=== PATIENT | male | born 1950 | race Caucasian/White ===

== ENCOUNTER 2021-11-21 13:30 | Inpatient (IN) | payer MEDICARE, OTHER, SELFPAY ==
[2021-11-21] VITALS (44 sets, daily range): BP systolic 106–150; BP diastolic 55–88; PULSE 77–105; RESP 10–31; TEMP 36.4–36.6; O2SAT 90–100; BMI 37.0
--- NOTE | ~2021-11-21 | XR_ITS ---
EXAMINATION: XR chest 2V EXAM DATE: 11/21/2021 13:51 INDICATION: Chest pain, cough and shortness of breath. TECHNIQUE: Frontal and lateral projections of the chest obtained and reviewed. There is no prior genna dy for comparison. FINDINGS: Right basilar calcified granuloma. The lungs are otherwise clear. The cardiomediastinal si lhouette is prominent but magnified on this AP technique. No pleural effusion.. There is no pneumoth orax suspected. There are mild bony degenerative changes. IMPRESSION: No acute cardiopulmonary findings. Reviewed, dictated and finalized at location A.
--- NOTE | ~2021-11-21 | CT_ITS ---
EXAMINATION: CTA chest PE protocol DATE: 11/21/2021 15:17 INDICATION: chest pain, post covid illness TECHNIQUE: Computed tomography angiography (CTA) of the chest was performed with 100 mL Omnipaque-350 intravenous contrast timed to evaluate the pulmonary arteries. Coronal maximum intensity projection 3D-reconstructions were created by the technologist. The dose-length product (DLP) was 935.67 mGy-cm. Automated exposure control and iterative reconstruction technique were employed. COMPARISON: X-ray chest, same date. FINDINGS: Study quality: Degraded by motion such that subsegmental and non-occlusive segmental emboli could be missed, especially in the left lower lobe. Pulmonary arteries: No pulmonary emboli detected. Thoracic aorta: Mild ectasia. Atherosclerotic calcification. Lung parenchyma and airways: Bibasilar atelectasis. Minimal scattered reticular, tree-in-bud, and suki trilobular opacities, most prominent in the dependent lower lungs and right middle lobe. Right lower lobe hamartoma. Thoracic inlet, axillae and chest wall: Unremarkable. Mediastinum: Enlarged mediastinal lymph nodes. Calcified nodes are present in the mediastinum and hil um. Heart and pericardium: Normal. Coronary artery calcifications: Moderate. Pleura: Unremarkable. Upper abdomen: Cholelithiasis. Left nephrolithiasis. Bilateral simple renal cysts. Bones: No acute osseous finding. IMPRESSION: Motion limited examination as described above, within that constraint no definite evidence of pulmona ry embolus. Subtle pulmonary opacities may reflect infection, small airways disease, or mild chronic change from prior Covid 19 pneumonia. Mediastinal lymphadenopathy. Reviewed, dictated and finalized at location K. IMPRESSION: Motion limited examination as described above, within that constraint no defini te evidence of pulmonary embolus. Subtle pulmonary opacities may reflect infect ion, small airways disease, or mild chronic change from prior Covid 19 pneumoni a. Mediastinal lymphadenopathy.
--- NOTE | 2021-11-21 13:37 | ECG_ITS ---
Measurements Intervals [place] Rate: 85 P: 66 IA: 181 QRS: 35 QRSD: 93 T: 55 QT: 369 QTc: 440 Interpretive Statements SINUS RHYTHM NORMAL ECG NO PREVIOUS ECG AVAILABLE FOR COMPARISON Electronically Signed On 11-21-2021 15:02:24 CDT by Sarkis Rehman M.D.
[2021-11-21 13:48] LABS: Basophils Absolute Auto 0.2 K/mm3 (0.0-0.1); Basophils Percent Auto 1.4 % (0.2-1.2); Eosinophils Absolute Auto 1.5 K/mm3 (0-0.3); Eosinophils Percent Auto 13.3 % (0-4.4); Hemoglobin 14.4 g/dL (14.0-18.0); Immature Granulocyte Absolute 0.06 K/mm3 (0.00-0.031); Immature Granulocyte Percent A 0.5 % (0-0.5); Lymphocytes Absolute Auto 1.54 K/mm3 (0.9-3.2); Lymphocytes Percent Auto 13.3 % (18.3-44.2); Mean Corpuscular Hemoglobin 29.3 pg (26-34); Mean Corpuscular Volume 91.5 fl (80-100); Monocytes Absolute Auto 1.2 K/mm3 (0.1-0.6); Monocytes Percent Auto 10.5 % (2.6-8.5); Neutrophils Absolute Auto 7.1 K/mm3 (1.3-6.7); Platelet Count Result 315 k/mm3 (150-375); Red Blood Count 4.92 M/mm3 (4.6-6.20); Red Cell Distribution Width 13.6 % (11.5-14.5); White Blood Count 11.6 K/mm3 (4.5-10.0)
--- NOTE | 2021-11-21 13:53 | ED.SOB ---
HPI - SOB/Dyspnea General Chief Complaint: Shortness of Breath/Dyspnea Stated Complaint: asthma Time Seen by Provider: 11/21/21 13:53 Source: patient Mode of arrival: ambulatory Limitations: no limitations History of Present Illness HPI Narrative: The patient is a 71-year-old male with a history of hypertension, hyperlipidemia, COVID-pneumonia diagnosed in July 2021, presenting to the emergency department for evaluation of cough, shortness of breath, wheezing. Patient states that he has had difficulty with wheezing and shortness of breath since COVID in July. Patient states his primary care physician started him on an albuterol nebulizer prescription at home which does help to improve his symptoms, but today patient noticed increased wheezing and dyspnea with any sort of exertion. Patient denies fever, chills, he does report cough with yellow sputum production, denies hemoptysis. He reports frontal chest pain without radiation of the pain to the jaw, neck, shoulder. He denies lower extremity swelling, redness, calf pain. No pleuritic type pain. Patient has received 1 COVID-vaccine. Of note, his from COVID infection in July 2021. Related Data Home Medications Medication Instructions Recorded Confirmed amlodipine 10 mg DAILY 11/21/21 hydralazine 50 mg DAILY 11/21/21 meloxicam 15 mg DAILY 11/21/21 metoprolol succinate 100 mg PO DAILY 11/21/21 triamterene-hydrochlorothiazid 1 tablet DAILY 11/21/21 valsartan 320 mg DAILY 11/21/21 Allergies Allergy/AdvReac Type Severity Reaction Status Date / Time clarithromycin [From Biaxin] Allergy Severe Difficulty Verified 11/21/21 13:57 Breathing Penicillins Allergy Unknown Hives Verified 11/21/21 13:57 Review of Systems Review of Systems: CONSTITUTIONAL: Denies fever, chills, or sweats. EYES: Denies visual changes, redness, or discharge. ENT: Denies rhinorrhea, congestion, sore throat, or otalgia. CARDIOVASCULAR: Reports frontal chest pain without radiation to the back or flank, denies palpitations or leg edema RESPIRATORY: Reports cough and shortness of breath, reports wheezing GASTROINTESTINAL: Denies abdominal pain, nausea, vomiting, or diarrhea. GENITOURINARY: Denies dysuria or hematuria. SKIN: Denies rash or itching. MUSCULOSKELETAL: Denies back pain, joint pain, or myalgia. NEUROLOGIC: Denies headache, numbness, or weakness. [facility] Past Medical History Medical History (Updated 11/21/21 @ 19:20 by Josiane Eaton MD) COVID-19 Pneumonia Surgical History Surgical History (Updated 11/21/21 @ 14:38 by Josiane Eaton MD) No pertinent past surgical history Social History Social History (Updated 11/21/21 @ 14:39 by Josiane Eaton MD) Smoking status: Never smoker Alcohol intake: never Substance use: never Gender identity (if verbalized by the patient): Male Exam Narrative: GENERAL: Awake, alert, conversant HEAD: Normocephalic, atraumatic. EYES: PERRLA and EOMI. ENT: Nares clear, no rhinorrhea or epistaxis. Mucous membranes moist. NECK: Supple. CHEST: No respiratory distress, tachypnea is improved at the time of assessment, patient with diffuse expiratory wheezing bilateral upper and lower lung batista, denies crackles HEART: Regular rate, sinus rhythm ABDOMEN: Protuberant, non distended, non tender EXTREMITIES: Normal range of motion. No edema. SKIN: Warm, dry, no rash. NEURO:No focal deficits. Alert and oriented x3 Course Vital Signs Vital signs: Vital Signs Pulse Rate 82 11/21/21 13:41 Respiratory Rate 31 H 11/21/21 13:41 Pulse Oximetry 94 11/21/21 13:41 Temperature 36.4 C 11/21/21 13:44 Pulse Rate 87 11/21/21 18:23 Respiratory Rate 27 H 11/21/21 18:23 Blood Pressure 143/80 H 11/21/21 17:46 Pulse Oximetry 99 11/21/21 19:08 MDM - SOB/Dyspnea MDM Narrative Medical decision making narrative: Patient presenting for evaluation of shortness of breath, wheezing. Patient has had inte
[2021-11-21 13:58] LABS: Alanine Aminotransferase 38 U/L (4-50); Albumin Level 4.5 g/dL (3.5-5.1); Alkaline Phosphatase 95 U/L (38-126); Anion Gap 7 mmol/L (8-16); Aspartate Amino Transferase 51 U/L (17-59); Bilirubin,Total 0.9 mg/dL (0.2-1.3); Blood Urea Nitrogen 23 mg/dL (9-20); Calcium 9.3 mg/dL (8.4-10.2); Carbon Dioxide 25 mmol/L (22-30); Chloride 104 mmol/L (98-107); Estimated CRCL calculation 67 ml/min; Estimated Glomerular Filt Rate > 60; Glucose 89 mg/dL (65-110); Lipase 138 U/L (23-300); Potassium 4.6 mmol/L (3.4-5.0); Sodium 136 mmol/L (137-145)
[2021-11-21 13:59] LABS: Prothrombin Time 13.1 Seconds (11.1-14.7)
[2021-11-21 14:00] LABS: Partial Thromboplastin Time 26.4 SECONDS (22.3-36.8)
[2021-11-21] MEDS: IPRATROPIUM BR 0.02% INH SOLN 0.5 MG/2.5 ML VIAL INHALATION (14:03)
[2021-11-21] MEDS: ALBUTEROL SULFATE NEB 2.5 MG/0.5 ML INH 5 MG INHALATION ×2 (14:03→14:42)
[2021-11-21 14:11] LABS: Troponin I < 0.012 ng/mL (0.000-0.034)
[2021-11-21] MEDS: methylPREDNISolone SOD SUCC 125 MG VIAL IV PUSH (15:07)
[2021-11-21] MEDS: SODIUM CHLORIDE 0.9% IV 500 ML 999 ML IV CONT (15:07)
[2021-11-21] MEDS: levoFLOXacin 500 MG/D5W 100 ML 500 MG/100 ML BAG 100 MG IVPB (15:32)
[2021-11-21 17:14] LABS: Troponin I < 0.012 ng/mL (0.000-0.034)
--- NOTE | 2021-11-21 17:40 | PC.NURSE ---
patient walked on pulse Ox down hallway and oxygen decreased to 89% on room air. EDP aware at this time.
[2021-11-21] MEDS: ALBUTEROL SULFATE NEB 2.5 MG/0.5 ML INH 10 MG INHALATION (18:23)
--- NOTE | 2021-11-21 20:31 | PM.IMHP ---
H&P: HPI History of Present Illness Date/Time: Patient was placed observation status for expected length of stay less than 23 hours for management, will plan to re-evaluate tomorrow for improvement. 11/21/21 20:31 Chief Complaint: Shortness of breath Narrative: Mr. Stratton is a 71-year-old man who presented to the emergency room with complaints of increasing shortness of breath over the last week and a half. Patient states he was diagnosed with COVID in July and has had weakness and shortness breast since that time, but over the last week and a half he has noticed increasing shortness of breath. Patient states he has also noticed a cough with yellow sputum. Patient denies any fever chills at home. Patient states he wheezing at times. Patient states in July he was never hospitalized with his COVID-19. Patient states that his did pass away from COVID-19. Upon evaluation in emergency room patient initially was noted to have an O2 saturation 92% on room air was given a DuoNeb treatment. Patient was also given IV Solu-Medrol as well as doxycycline. Patient states he was feeling mildly better and was ready to go home, but then his saturations were monitored he was in the mid to high 90s on room air and he became tachycardic. Patient did undergo CTA of the chest showed motion limited examination as described above, with the back is straight no definite evidence of pulmonary embolism. Subtle pulmonary opacities may reflect infection, small airway disease, or mild chronic change from prior COVID-19 pneumonia. Mediastinal lymphadenopathy. Patient denies any chest pain, lightheadedness, dizziness, orthopnea, or PND. Patient denies any dysuria, hematuria, frequency, or urgency. Patient states he has a known past medical history of hypertension, COPD, and renal calculi. Patient states he has been taking all medications at home without any difficulty. Review of Systems Review of Systems: A 12 point review of systems was completed patient all pertinent positive and negative per HPI the remainder are unremarkable. [facility] Past Medical History Medical History (Updated 11/21/21 @ 20:44 by Siobhan Nolen APRN) COVID-19 Hyperlipidemia Hypertension Pneumonia Surgical History Surgical History (Updated 11/21/21 @ 14:38 by Josiane Eaton MD) No pertinent past surgical history Social History Social History (Updated 11/21/21 @ 14:39 by Josiane Eaton MD) Smoking status: Never smoker Alcohol intake: never Substance use: never Gender identity (if verbalized by the patient): Male Meds Home Medications and Allergies Home Medications Medication Instructions Recorded Confirmed Type albuterol sulfate 1 inhalation INHALATION Q4-6H PRN 11/21/21 Rx #1 each amlodipine 10 mg DAILY 11/21/21 History doxycycline hyclate 100 mg PO Q12H 10 Days #20 cap 11/21/21 Rx hydralazine 50 mg DAILY 11/21/21 History meloxicam 15 mg DAILY 11/21/21 History metoprolol succinate 100 mg PO DAILY 11/21/21 History prednisone 60 mg PO DAILY 5 Days #15 tablet 11/21/21 Rx triamterene-hydrochlorothiazid 1 tablet DAILY 11/21/21 History valsartan 320 mg DAILY 11/21/21 History Allergies Allergy/AdvReac Type Severity Reaction Status Date / Time clarithromycin [From Biaxin] Allergy Severe Difficulty Verified 11/21/21 13:57 Breathing Penicillins Allergy Unknown Hives Verified 11/21/21 13:57 Vital Signs Vital Signs - 24 hr 11/21/21 13:41 11/21/21 13:44 11/21/21 13:51 Temperature 36.4 C Pulse Rate 82 84 80 Respiratory Rate 31 H 24 H 14 Blood Pressure 118/62 Pulse Oximetry 94 95 94 11/21/21 13:53 11/21/21 13:55 11/21/21 14:00 Temperature Pulse Rate 80 80 Respiratory Rate 27 H Blood Pressure Pulse Oximetry 96 94 11/21/21 14:05 11/21/21 14:15 11/21/21 14:17 Temperature Pulse Rate 79 77 79 Respiratory Rate 15 10 L 21 H Blood Pressure Pulse Oximetry 100 11/21/21 14:30 11/21/21
--- NOTE | 2021-11-21 20:51 | ADMGEN ---
This patient, Richy Stratton, was admitted to IMU Room 213-01 at 2047. Patient/family oriented to hospital policies and general routines including ID bracelet, bed and alarms, visiting hours, pain management, procedures, bathroom and other care routines, personal items, smoking policy, room service/diet, and visiting hours. Information on how to activate the Rapid Response Team has been discussed. Patient/Family are encouraged to report perceived risks to care and to ask questions if they do not understand what they are told or what they should do.
[2021-11-21 21:49] LABS: Troponin I < 0.012 ng/mL (0.000-0.034)
[2021-11-21] MEDS: ENOXAPARIN 40 MG/0.4 ML SYRINGE SUB-Q (22:38)
[2021-11-21] MEDS: methylPREDNISolone SOD SUCC 125 MG VIAL 60 MG IV PUSH (22:38)
[2021-11-21] MEDS: DOXYCYCLINE HYCLATE 100 MG TABLET PO (22:39)
[2021-11-22] VITALS (21 sets, daily range): BP systolic 122–161; BP diastolic 61–89; PULSE 77–107; RESP 14–22; TEMP 36.5–37.1; O2SAT 91–96
[2021-11-22] MEDS: IPRATROPIUM BR 0.02% INH SOLN 0.5 MG/2.5 ML VIAL INHALATION ×4 (01:46→21:22)
[2021-11-22] MEDS: ALBUTEROL SULFATE NEB 2.5 MG/0.5 ML INH 5 MG INHALATION ×5 (01:46→13:57)
[2021-11-22 04:35] LABS: Basophils Percent Auto 0.1 % (0.2-1.2); Hematocrit 43.3 % (42.0-52.0); Hemoglobin 13.8 g/dL (14.0-18.0); Immature Granulocyte Absolute 0.04 K/mm3 (0.00-0.031); Immature Granulocyte Percent A 0.5 % (0-0.5); Lymphocytes Absolute Auto 0.74 K/mm3 (0.9-3.2); Lymphocytes Percent Auto 9.1 % (18.3-44.2); Mean Corpuscular HGB Conc 31.9 g/dl (32-36); Mean Corpuscular Hemoglobin 29.5 pg (26-34); Mean Corpuscular Volume 92.5 fl (80-100); Mean Platelet Volume 9.1 fl (7.4-10.4); Monocytes Absolute Auto 0.1 K/mm3 (0.1-0.6); Monocytes Percent Auto 0.9 % (2.6-8.5); Neutrophils Absolute Auto 7.2 K/mm3 (1.3-6.7); Neutrophils Percent Auto 89.4 % (45.5-73.1); Platelet Count Result 307 k/mm3 (150-375); Red Blood Count 4.68 M/mm3 (4.6-6.20); Red Cell Distribution Width 13.5 % (11.5-14.5); White Blood Count 8.1 K/mm3 (4.5-10.0)
[2021-11-22 04:45] LABS: Anion Gap 10 mmol/L (8-16); Blood Urea Nitrogen 24 mg/dL (9-20); Calcium 9.3 mg/dL (8.4-10.2); Carbon Dioxide 22 mmol/L (22-30); Chloride 103 mmol/L (98-107); Estimated CRCL calculation 67 ml/min; Estimated Glomerular Filt Rate > 60; Glucose 153 mg/dL (65-110); Magnesium 2.3 mg/dL (1.6-2.3); Potassium 4.4 mmol/L (3.4-5.0); Sodium 135 mmol/L (137-145)
[2021-11-22] MEDS: methylPREDNISolone SOD SUCC 125 MG VIAL 60 MG IV PUSH ×2 (06:47→12:42)
[2021-11-22] MEDS: DOXYCYCLINE HYCLATE 100 MG TABLET PO ×2 (10:05→20:27)
[2021-11-22] MEDS: guaiFENesin 12 HR 600 MG TABCR PO ×2 (13:38→20:27)
--- NOTE | 2021-11-22 15:19 | PM.CNPUL ---
Assessment and Plan Assessment and plan (1) Post-COVID chronic dyspnea: Code(s): R06.09 - Other forms of dyspnea; U09.9 - Post COVID-19 condition, unspecified Status: Acute Assessment and Plan: PLAN: Echo; has systolic murmur Mucolytics and Cornet vibratory valve; he is struggling with thick secretions which are new. Controller medications for asthma. Home O2 evaluation before leaving hospital. After discharge, pulmonary office follow up visit with a NIOX. When he is closer to baseline, needs PFT and nocturnal oximetry. Serial peak flows to follow airflow obstruction. He does not have fibrosis on his chest CT. He has active inflammatory changes. He may need a repeat chest CT in several months to evaluate for fibrotic changes. His shortness of breath is likely post-COVID and not asthma. He has not been on asthma controller medications except for Breztri that caused hemoptysis. 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 This is moderately elevated, rasing concern for allergic bronchopulmonary aspergillosis. ABPA is a hypersensitivity reaction in the airways in people with asthma. He has allergic rhinitis by history with increase in symptoms spring and fall. His chest CT did not show the typical abnormal findings such as bronchiectasis, bronchial wall thickening, tram lines, and perihilar opacities. He does have thick mucus which suggests mucus plugging. I will obtain IgE level, sputum for eosinophils and sputum for fungal smear and culture to try to evaluate for Aspergillus. He is now on solumedrol which might make these results negative. ABPA is seen in a small number of asthma patients. Treatment with steroids can quickly improve symptoms. CAIN cascade and UA are indicated; UA is important to evaluate for hematuria - pulmonary renal syndrome; CAIN to evaluate for collagen vascular disease which can be associated with vasculitis, eosinophilia, hemoptysis. History of Present Illness History of Present Illness Consult date: 11/22/21 Requesting physician: Caesar Rust MD Chief complaint: Dyspnea,hypoxic respiratory failure, Narrative: NEW CONSULT: Dr Rust requested me to see this patient for increased shortness of breath post COVID, worsening the day of admission. Rcihy Stratton is a 71 year old man, never smoker, with asthma for many years. He has been on Breztri as a controller medication for asthma medication, stopped after he had hemoptysis. He had COVID in July at the same time his had it. She 16 days after diagnosis. The patient was much less ill with COVID, did not require oxygen, did not have in-patient treatment, did not have thromboembolism or abnormal labs that he can recall. He describes a mild case. He had a Pfizer vaccination in September. He has never been prescribed O2, only had it when in a hospital or for a procedure. He uses an oximeter at home, saturation is usually 90-93%. Over the next several months, he has had increasing shortness of breath. Dr Dixon, his PCP, prescribed a nebulizer with albuterol 4 times a day and an albuterol inhaler p.r.n, about twice a day. Yesterday, he became suddenly more short of breath while babysitting his 8 year old grandson, had thick yellow sputum that was difficult to expectorate, and was struggling to breathe. He came to the hospital, had borderline saturation. The ER doctor reported that he had symptoms for longer than 1 day, symptoms including cough, yellow sputum and wheezing for a week. He did not have fever, chills, sore throat, nasal congestion, abdominal pain or N/V/D, rash or joint pains. His CXR shows nothing acute; CTA : Motion limited examination as descri
--- NOTE | 2021-11-22 16:02 | ECHO_ITS ---
Patient Info Name: Richy Stratton Age: 71 years : 1950 Gender: Male Ht: 66 in Wt: 225 lbs BSA: 2.22 m2 HR: 97 bpm BP: 134 / 68 mmHg Heart Rhythm: Sinus Rhythm Technical Quality: Fair Exam Date: 11/22/2021 4:29 PM Exam Location: [facility] Patient Status: Inpatient Admit Date: 11/22/2021 Staff Ordering Physician: Nikki Mcclellan MD Kettle Cleaner: Valeria Gee RDCS Attending Provider: Shannan Trinidad MD Referring Physician: Vy AYON; Exam Type: CA echo doppler color flow Study Info Indications - shortness of breath Complete two-dimensional, color flow and Doppler transthoracic echocardiogram is performed. Summary 1. Complete two-dimensional, color flow and Doppler transthoracic echocardiogram is performed. 2. Left ventricular chamber dimension is normal. 3. Left ventricular systolic function is hyperdynamic, estimated at >70%. 4. There is mildly increased left ventricular wall thickness. 5. The left ventricular diastolic function is grade I diastolic dysfunction. 6. Right atrial chamber dimension is mildly enlarged. 7. There is trace tricuspid valve regurgitation. 8. No pulmonary hypertension, estimated pulmonary arterial systolic pressure is 32 mmHg. 9. There is moderate aortic valve stenosis with a peak velocity of 320 cm/s, mean gradient of 24 mmHg, and aortic valve area of 1.4 cm2. 10. The aortic valve is not well visualized. 11. Mildly dilated main pulmonary artery at 3.6 cm. Left Ventricle Left ventricular chamber dimension is normal. Left ventricular systolic function is hyperdynamic, estimated at >70%. There is mildly increased left ventricular wall thickness. The left ventricular diastolic function is grade I diastolic dysfunction. Right Ventricle Right ventricular chamber dimension is normal. Right ventricular systolic function is normal. Left Atria Left atrial chamber dimension is normal. Right Atria Right atrial chamber dimension is mildly enlarged. Aortic Valve The aortic valve is not well visualized. There is moderate aortic valve stenosis with a peak velocity of 320 cm/s, mean gradient of 24 mmHg, and aortic valve area of 1.4 cm2. There is mild aortic valve calcification. Pulmonic Valve The pulmonic valve is not well visualized. Mitral Valve The mitral valve has thickened leaflets. There is trace mitral valve regurgitation. The mitral valve annulus is moderately calcified. Tricuspid Valve The tricuspid valve leaflets are normal. There is trace tricuspid valve regurgitation. No pulmonary hypertension, estimated pulmonary arterial systolic pressure is 32 mmHg. Pulmonary Arteries Mildly dilated main pulmonary artery at 3.6 cm. Pericardium/Pleural The pericardium appears normal. There is trivial pericardial effusion. Inferior Vena Cava Normal inferior vena cava with >50% collapse upon inspiration consistent with normal right atrial pressure, 5 mmHg. Aorta The aortic root size at the sinus of Valsalva is normal. There is mild aortic atherosclerosis. Left Ventricular Outflow Tract Name Value Normal LVOT 2D LVOT Diameter 2.0 cm LVOT Doppler
--- NOTE | 2021-11-22 17:30 | PM.IMPN ---
Progress Note: A&P Assessment and Plan (1) Asthma with exacerbation: Code(s): J45.901 - Unspecified asthma with (acute) exacerbation Status: Acute Assessment and Plan: Patient received Solu-Medrol as well as DuoNeb treatments in the emergency room. Will continue with DuoNeb treatments routinely as well as IV Solu-Medrol. Would like to keep O2 saturations greater than 92%. 11/22/2021 Interval history: Patient with his of asthma has been using his INH on and off, patient had COVID pneumonia in July of 2021 and stats since then he is more short of breath and recently his symptoms have worsen with exertion, patient does not have significant smoking history, it seems his symptoms are lingering from COVID pneumonia and anxiety as his recently due to COVID. patient is being treated with mehtylprednisone and updraft, will CPM, to further evaluate will consult Dr. Mcclellan, dust sampler, patient may benefit from PFT and sleep study as an outpatient. (2) Hypertension: Code(s): I10 - Essential (primary) hypertension Status: Acute Assessment and Plan: Will resume patient's home medications once verified home medication list and adjust medications accordingly for optimal blood pressure control. (3) Hyperlipidemia: Code(s): E78.5 - Hyperlipidemia, unspecified Status: Acute Assessment and Plan: Will resume patient's home medications whatsoever at home medications. Subjective Date/time seen: 11/22/21 17:30 Chief Complaint: Shortness of breath Narrative: Mr. Stratton is a 71-year-old man who presented to the emergency room with complaints of increasing shortness of breath over the last week and a half. Patient states he was diagnosed with COVID in July and has had weakness and shortness breast since that time, but over the last week and a half he has noticed increasing shortness of breath. Patient states he has also noticed a cough with yellow sputum. Patient denies any fever chills at home. Patient states he wheezing at times. Patient states in July he was never hospitalized with his COVID-19. Patient states that his did pass away from COVID-19. Upon evaluation in emergency room patient initially was noted to have an O2 saturation 92% on room air was given a DuoNeb treatment. Patient was also given IV Solu-Medrol as well as doxycycline. Patient states he was feeling mildly better and was ready to go home, but then his saturations were monitored he was in the mid to high 90s on room air and he became tachycardic. Patient did undergo CTA of the chest showed motion limited examination as described above, with the back is straight no definite evidence of pulmonary embolism. Subtle pulmonary opacities may reflect infection, small airway disease, or mild chronic change from prior COVID-19 pneumonia. Mediastinal lymphadenopathy. Patient denies any chest pain, lightheadedness, dizziness, orthopnea, or PND. Patient denies any dysuria, hematuria, frequency, or urgency. Patient states he has a known past medical history of hypertension, COPD, and renal calculi. Patient states he has been taking all medications at home without any difficulty. 11/22/2021 Interval history: Patient with his of asthma has been using his INH on and off, patient had COVID pneumonia in July of 2021 and stats since then he is more short of breath and recently his symptoms have worsen with exertion, patient does not have significant smoking history, it seems his symptoms are lingering from COVID pneumonia and anxiety as his recently due to COVID. patient is being treated with mehtylprednisone and updraft, will CPM, to further evaluate will consult Dr. Mcclellan, dust sampler, patient may benefit from PFT and sleep study as an outpatient. Review of Systems Review of Systems: All systems reviewed & are unremarkable except as noted in HPI and below Exam Narrative: Patient is comfortable, NAD HEENT: polly
--- NOTE | 2021-11-22 17:31 | PC.NURSE ---
1730-pt is depressed. Frequently crying throughout the day regarding his wifes's passing from Covid, and other family members with issues. Informed Dr. bailey about depression.
[2021-11-22] MEDS: ENOXAPARIN 40 MG/0.4 ML SYRINGE SUB-Q (20:27)
[2021-11-22] MEDS: FLUTICASONE/SALMETEROL 115-21 MCG INHALER 1 PUFF 2 PUFF INHALATION (21:22)
[2021-11-22] MEDS: DORNASE ALFA INH SOLN 1 MG/ML 2.5 ML AMP 2.5 MG INHALATION (21:22)
[2021-11-22] MEDS: methylPREDNISolone SOD SUCC 40 MG VIAL IV PUSH (21:32)
--- NOTE | 2021-11-22 21:59 | PC.NURSE ---
This patient, Richy Stratton, was transferred to [facility] on 11/22/21 at 2100. Personal belongings sent with patient. Report given to CARLOS ROLLINS. Appropriate documentation sent with patient.
[2021-11-23] VITALS (14 sets, daily range): BP systolic 112–150; BP diastolic 50–88; PULSE 90–120; RESP 16–20; TEMP 36.6–36.9; O2SAT 93–95
[2021-11-23 00:26] LABS: Appearance Urine Clear (Clear); Bilirubin Urine Negative (Negative); Blood Urine Negative (Negative); Color Urine Yellow (Yellow); Glucose Urine UA Negative (Negative); Ketones Urine Negative (Negative); Leukocyte Esterase Ur Negative LEU/UL (NEGATIVE); Nitrate Urine Negative (Negative); Protein Urine Negative (Negative); Urobilinogen Urine 0.2 mg/dL (<2.0)
[2021-11-23 00:30] LABS: Mucus Urine Rare /lpf; WBC Urine 0-3 /hpf (0-3)
[2021-11-23 00:37] LABS: Add Urine Microscopic? YES
[2021-11-23] MEDS: IPRATROPIUM BR 0.02% INH SOLN 0.5 MG/2.5 ML VIAL INHALATION ×3 (02:30→14:50)
[2021-11-23] MEDS: methylPREDNISolone SOD SUCC 40 MG VIAL IV PUSH ×2 (05:00→13:20)
[2021-11-23] MEDS: guaiFENesin 12 HR 600 MG TABCR PO (08:00)
[2021-11-23] MEDS: EZETIMIBE 10 MG TABLET PO (08:00)
[2021-11-23] MEDS: SERTRALINE HCL 25 MG TABLET PO (08:00)
[2021-11-23] MEDS: PANTOPRAZOLE 40 MG TABLET PO (08:00)
[2021-11-23] MEDS: hydrALAZINE HCL 50 MG TABLET BY MOUTH (08:00)
[2021-11-23] MEDS: MELOXICAM 7.5 MG TABLET 15 MG BY MOUTH (08:00)
[2021-11-23] MEDS: METOPROLOL SUCCINATE EXT REL 100 MG TABCR PO (08:01)
[2021-11-23] MEDS: VALSARTAN 160 MG TABLET 320 MG BY MOUTH (08:01)
[2021-11-23] MEDS: DOXYCYCLINE HYCLATE 100 MG TABLET PO (08:01)
[2021-11-23] MEDS: amLODIPine BESYLATE 5 MG TABLET 10 MG BY MOUTH (08:01)
[2021-11-23] MEDS: TRIAMTERENE 37.5 MG/HCTZ 25 MG (MAXZIDE) TABLET 1 TAB BY MOUTH (08:02)
[2021-11-23] MEDS: FLUTICASONE/SALMETEROL 115-21 MCG INHALER 1 PUFF 2 PUFF INHALATION (08:39)
[2021-11-23] MEDS: ALBUTEROL SULFATE NEB 2.5 MG/0.5 ML INH 5 MG INHALATION ×2 (08:39→14:50)
[2021-11-23] MEDS: DORNASE ALFA INH SOLN 1 MG/ML 2.5 ML AMP 2.5 MG INHALATION (08:39)
--- NOTE | 2021-11-23 13:46 | PM.IMPN ---
Progress Note: A&P Assessment and Plan (1) Asthma with exacerbation: Code(s): J45.901 - Unspecified asthma with (acute) exacerbation Status: Acute Assessment and Plan: Patient received Solu-Medrol as well as DuoNeb treatments in the emergency room. Will continue with DuoNeb treatments routinely as well as IV Solu-Medrol. Would like to keep O2 saturations greater than 92%. 11/22/2021 Interval history: Patient with his of asthma has been using his INH on and off, patient had COVID pneumonia in July of 2021 and stats since then he is more short of breath and recently his symptoms have worsen with exertion, patient does not have significant smoking history, it seems his symptoms are lingering from COVID pneumonia and anxiety as his recently due to COVID. patient is being treated with mehtylprednisone and updraft, will CPM, to further evaluate will consult Dr. Mcclellan, broadcast field supervisor, patient may benefit from PFT and sleep study as an outpatient. 11/23: on iv steroid. may switch to oral as no active wheezing and taper as tolerated. CXR and CT chest reviewed. on doxycycline for atypical infection, will continue same. (2) Hypertension: Code(s): I10 - Essential (primary) hypertension Status: Acute Assessment and Plan: home medicatiosn (3) Hyperlipidemia: Code(s): E78.5 - Hyperlipidemia, unspecified Status: Acute Assessment and Plan: Will resume patient's home medications whatsoever at home medications. (4) Aortic stenosis: Code(s): I35.0 - Nonrheumatic aortic (valve) stenosis Status: Acute Assessment and Plan: newly diangosed. moderate aortic stenosis. needs outpatient evaluation and monitoring. 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 he might have seen one in the past as well. 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 Stratton is a 71-year-old man who presented to the emergency room with complaints of increasing shortness of breath over the last week and a half. Patient states he was diagnosed with COVID in July and has had weakness and shortness breast since that time, but over the last week and a half he has noticed increasing shortness of breath. Patient states he has also noticed a cough with yellow sputum. Patient denies any fever chills at home. Patient states he wheezing at times. Patient states in July he was never hospitalized with his COVID-19. Patient states that his did pass away from COVID-19. Upon evaluation in emergency room patient initially was noted to have an O2 saturation 92% on room air was given a DuoNeb treatment. Patient was also given IV Solu-Medrol as well as doxycycline. Patient states he was feeling mildly better and was ready to go home, but then his saturations were monitored he was in the mid to high 90s on room air and he became tachycardic. Patient did undergo CTA of the chest showed motion limited examination as described above, with the back is straight no definite evidence of pulmonary embolism. Subtle pulmonary opacities may reflect infection, small airway disease, or mild chronic change from prior COVID-19 pneumonia. Mediastinal lymphadenopathy. Patient denies any chest pain, lightheadedness, dizziness, orthopnea, or PND. Patient denies any dysuria, hematuria, frequency, or urgency. Patient states he has a known past medical history of hypertension, COPD, and renal calculi. Patient states he has been taking all medications at home without any difficulty. 11/23/2021 he is feeling better. no new compalints. no chest pain. no wheezes. no leg swelling. Review of Systems Review of Systems: All systems reviewed & are unrem
--- NOTE | 2021-11-23 14:36 | PM.PNPUL ---
Progress Note: A&P Assessment and Plan (1) Post-COVID chronic dyspnea: Code(s): R06.09 - Other forms of dyspnea; U09.9 - Post COVID-19 condition, unspecified Status: Acute Assessment and Plan: PLAN: Ok for discharge. Echo shows his mild to moderate aortic stenosis. He can take his Cornet vibratory valve home and continue to use. Controller medications for asthma; will start Advair as this is what he used while in the hospital. I sent albuterol neb solution to his pharmacy. His saturation is 92-95% on room air. After discharge, pulmonary office follow up visit within a month with a NIOX. When he is closer to baseline, needs PFT, 6 minute walk and nocturnal oximetry vs a sleep study. When he is an out-patient, peak flow monitoring. I will follow up his labs including CAIN, sputum studies, IgE out patient. He does not have fibrosis on his chest CT. He has active inflammatory changes. He may need a repeat chest CT in several months to evaluate for fibrotic changes. His shortness of breath is likely post-COVID and not asthma plus aortic stenosis. He has not been on asthma controller medications except for Breztri that caused hemoptysis. 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 This is moderately elevated, rasing concern for allergic bronchopulmonary aspergillosis. ABPA is a hypersensitivity reaction in the airways in people with asthma. He has allergic rhinitis by history with increase in symptoms spring and fall. His chest CT did not show the typical abnormal findings such as bronchiectasis, bronchial wall thickening, tram lines, and perihilar opacities. He does have thick mucus which suggests mucus plugging. I will obtain IgE level, sputum for eosinophils and sputum for fungal smear and culture to try to evaluate for Aspergillus. He is now on solumedrol which might make these results negative. ABPA is seen in a small number of asthma patients. Treatment with steroids can quickly improve symptoms. CAIN cascade is pending, and UA shows no hematuria. UA is important to evaluate for hematuria - pulmonary renal syndrome; CAIN to evaluate for collagen vascular disease which can be associated with vasculitis, eosinophilia, hemoptysis. Subjective Date/time seen: 11/23/21 14:36 Richy Stratton is a 71 year old man seen in follow up for shortness of breath, has asthma, not on a controller. He feels much better. His echo shows mild to moderate aortic stenosis. He feels better today, and wants to go home. His sputum is not as thick, he does not have as much, and he is not struggling to get it expectorated. Hx: never smoker, asthma for many years. Breztri caused hemoptysis. COVID Jul 2021. [employer] COVID vaccination in September. Short of breath since COVID. Dr Dixon, his PCP, prescribed a nebulizer with albuterol 4 times a day and an albuterol inhaler p.r.n, about twice a day. He is a never-smoker. He was in the [facility] for 7 months, no asbestos exposure. 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 He has environmental allergies, worse in the spring and fall, with nasal itching, congestion, itchy eyes, sneezing. He has used loratadine and Nasacort with benefit. Flonase caused an adverse event. He has been on Breztri, a triple drug for his asthma, Budesonide, glycopyrrolate and formoterol however 2 weeks later he was spitting up blood. SLEEP: He snores. Sleeps with head elevated on pillows. normal bedtime is 10:30 p.m., he wakes at 7:00 a.m.. He has vivid dreams throughout the night. He wakes 2-3 times to urinate. He does not have problems with uncomfortable leg sensation or kicking at night. He takes a n
--- NOTE | 2021-11-23 15:03 | PM.DS ---
DS: Admitting Diagnosis Discharge Date 11/23/2021 Admitting Diagnosis shortness of breath DS: Discharge Diagnosis Discharge Diagnosis (1) Asthma with exacerbation: Code(s): J45.901 - Unspecified asthma with (acute) exacerbation Status: Acute Assessment and Plan: Patient received Solu-Medrol as well as DuoNeb treatments in the emergency room. Will continue with DuoNeb treatments routinely as well as IV Solu-Medrol. Would like to keep O2 saturations greater than 92%. he has a history of asthma and eosinophilia. Recently had COVID in July 2021. He has been having symptoms lingering from COVID pneumonia and anxiety since his recently due to COVID. Pulmonary consulted. Needs PFT and sleep study as an outpatient basis. Chest x-ray and CT chest reviewed. Continue with doxycycline to finish the course. Steroid taper. (2) Hypertension: Code(s): I10 - Essential (primary) hypertension Status: Acute Assessment and Plan: home medicatiosn (3) Hyperlipidemia: Code(s): E78.5 - Hyperlipidemia, unspecified Status: Acute Assessment and Plan: Will resume patient's home medications whatsoever at home medications. (4) Aortic stenosis: Code(s): I35.0 - Nonrheumatic aortic (valve) stenosis Status: Acute Assessment and Plan: newly diangosed. moderate aortic stenosis. needs outpatient evaluation and monitoring. 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 he might have seen one in the past as well. 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 HEART: RR S1S2 systolic murmur in aortic area ABD: distended , soft, non tender Lower extremities: no edema cyanosis or clubbing SKIN: nonjaundiced Neuro: grossly intact. DS: Data Data Completed and Pending Completed studies during hospitalization: Exam Type: CA echo doppler color flow Study Info Indications - shortness of breath Complete two-dimensional, color flow and Doppler transthoracic echocardiogram is performed. Summary 1. Complete two-dimensional, color flow and Doppler transthoracic echocardiogram is performed. 2. Left ventricular chamber dimension is normal. 3. Left ventricular systolic function is hyperdynamic, estimated at >70%. 4. There is mildly increased left ventricular wall thickness. 5. The left ventricular diastolic function is grade I diastolic dysfunction. 6. Right atrial chamber dimension is mildly enlarged. 7. There is trace tricuspid valve regurgitation. 8. No pulmonary hypertension, estimated pulmonary arterial systolic pressure is 32 mmHg. 9. There is moderate aortic valve stenosis with a peak velocity of 320 cm/s, mean gradient of 24 mmHg, and aortic valve area of 1.4 cm2. 10. The aortic valve is not well visualized. 11. Mildly dilated main pulmonary artery at 3.6 cm. Left Ventricle Left ventricular chamber dimension is normal. Left ventricular systolic function is hyperdynamic, estimated at >70%. There is mildly increased left ventricular wall thickness. The left ventricular diastolic function is grade I diastolic dysfunction. Right Ventricle Right ventricular chamber dimension is normal. Right ventricular systolic function is normal. Left Atria Left atrial chamber dimension is normal. Right Atria Right atrial chamber dimension is mildly enlarged. Aortic Valve The
[2021-11-26 20:59] LABS: ANA Cascade Screen Negative (Negative)
== END 2021-11-23 16:20 | disposition home or self-care (01) | DRG 198 ==
LOC: ANHED 19:20 → ANHIMU 19:51 → ANH2MED 11-22 21:03
PROVIDERS: Emergency Medicine; Internal Medicine Critical Care Medicine; Nurse Practitioner Adult Health; Admitting Provider Family Medicine; Emergency Provider Emergency Medicine; Visit Provider Internal Medicine
DX: J82.83 Eosinophilic asthma (principal); I10 Essential (primary) hypertension; R00.0 Tachycardia, unspecified; E78.5 Hyperlipidemia, unspecified; Z79.51 Long term (current) use of inhaled steroids; J44.9 Chronic obstructive pulmonary disease, unspecified; Z63.4 Disappearance and death of family member; I35.0 Nonrheumatic aortic (valve) stenosis; R09.02 Hypoxemia; U09.9 Post COVID-19 condition, unspecified; N20.0 Calculus of kidney; Z79.899 Other long term (current) drug therapy
CPT/HCPCS: 36415; 71046; 71275; 80048; 80053; 81001; 83690; 83735; 84484; 85025; 85610; 85730; 86038; 93005; 93306; 94640; 94667; 94668; 96365; 96375; 99285; A9270; J1650; J1956; J2920; J2930; J7040; Q9967

== ENCOUNTER 2022-01-16 15:02 | Outpatient (CLI) | payer MEDICARE, OTHER, SELFPAY ==
[2022-01-20 19:39] LABS: Immunoglobulin E 590 kU/L (<=114)
== END 2022-01-16 15:03 | disposition home or self-care (01) ==
LOC: ANHLAB 15:03
PROVIDERS: Visit Provider Internal Medicine Critical Care Medicine
DX: J82.83 Eosinophilic asthma (principal)
CPT/HCPCS: 36415; 82785

== ENCOUNTER 2022-01-29 08:07 | Outpatient (CLI) | payer MEDICARE, OTHER, SELFPAY ==
--- NOTE | 2022-02-20 15:18 | WPDSLEEPSTUD ---
Sleep Study Date of Study: 01/29/22 Ordering Provider: Nikki Mcclellan MD Interpreting Physician: Charlotte Vincent DO Sleep Study Type: CPAP Titration Height: 17.07 m Weight: 111.13 kg Body Mass Index: 0.4 Neck Circumference (inches): 20 [place]: 12 Reason for Sleep Study The patient had a HSAT on 01/08/2022 at [facility] in [place] that showed an AHI of 64.5 with desaturation down to 64%. He spent 34.1 minutes with an SpO2 less than 89%. Oxygen desaturation index of 54.5 using the 4% cutoff. Sleep History The patient is a 71 y/o male with eosinophilic asthma, bronchiectasis, moderate aortic stenosis, hypertension, hyperlipidemia and DIANE that had a PAP Titration ordered by his behavioral health aide. the patient frequently awakens from sleep short of breath. He rarely awakens at night with heartburn, belching or cough. He constantly snores and is frequently loud enough that others complain. He frequently has trouble sleeping when he has a cold. He occasionally wakes up gasping for air throughout the night. He frequently has breathing problems at night observed by himself or others. He rarely sweats excessively at night. He occasionally has heart palpitations or irregular heartbeats during the night. He frequently falls asleep during the day but never while driving. He denies cataplexy. He denies having trouble at school or work due to sleep. He rarely feels unable to move when waking up or falling asleep. He frequently experiences vivid dreamlike scenes upon awakening or falling asleep. He occasionally feels afraid of going to sleep. He frequently has nightmares and frequently remembers his dreams. He constantly has thoughts racing through his mind. He frequently feels sad, depressed and anxious. He frequently has muscular tension. He denies noticing parts of his body jerk. He rarely kicks during the night. He denies having crawling and aching feelings in his legs. He rarely has leg pain during the night. He denies grinding his teeth during sleep and awakening with morning jaw pain. He is frequently bothered by pain during the day and occasionally awakened by pain during the night. He frequently wakes up feeling stiff in the morning. He occasionally wakes up with sore achy muscles. He occasionally wakes up with pain in the neck, spine other joints. He goes to bed at 11:00 p.m. on both weekdays and weekends. It takes him 5 minutes to fall asleep. He wakes up 5-8 times throughout the night to urinate. He can fall back asleep within 10-15 minutes. He typically gets 8 hours of sleep per night. He wakes up at 7:30 a.m. on both weekdays and weekends. He does not stay in bed after waking up in the morning. He currently lives alone. He does not consume any caffeinated beverages within 2 hours of bedtime. He does not engage in physical exercise before bedtime. He will read and watch television before falling asleep. He will take naps in the afternoon or the evening and they are refreshing. He drinks 2-3 caffeinated beverages per day. He drinks 1 alcoholic beverage per day. He denies tobacco and recreational drug use. [facility] Past Medical History Medical History COVID-19 Hyperlipidemia Hypertension Kidney stones Pneumonia Surgical History Surgical History No pertinent past surgical history Family History Family History Other Unknown family medical history Social History Social History Smoking status: Never smoker Alcohol intake: current Substance use: never Gender identity (if verbalized by the patient): Male Spiritual care concerns: No Medications Home Medications Medication Instructions Recorded Confirmed Type amlodipine 10 mg tablet 10 mg DAILY 11/21/21 01/16/22 H
== END 2022-01-30 06:43 | disposition home or self-care (01) ==
LOC: ANHCSM 08:12
PROVIDERS: Visit Provider Internal Medicine Critical Care Medicine
DX: G47.33 Obstructive sleep apnea (adult) (pediatric) (principal)
CPT/HCPCS: 95811

== ENCOUNTER 2022-05-08 08:59 | Outpatient (CLI) | payer MEDICARE, OTHER, SELFPAY ==
--- NOTE | 2022-05-08 12:30 | WPDSIXMINUTE ---
Six Minute Walk Procedure Procedure Performed Pulmonary Stress Test (6 min walk) Six Minute Walk Six Minute Walk: This is a 6 minute walk test. The test was performed and interpreted in accordance with the 2014 ERS/ATS task force guidelines. Findings: The patient's resting room air oxygen saturation measured by pulse oximetry was 95% and heart rate was 83 bpm. Patient ambulated for 274 meters and oxygen saturation remained 91 to 95%. Heart rate at the end of the study was 96 bpm. The patient did not qualify for supplemental oxygen at rest or with ambulation. There are no prior studies for comparison.
--- NOTE | 2022-05-08 12:31 | WPDPFTINT ---
PFT Procedure Performed PFT Procedure Performed Spirometry with Pre/Post Bronchodilator Plethysmography (Lung Vol) Diffusing Cap (DLCO) Flow Vol Loop PFT Interpretation This is a pulmonary function test with pre and post-bronchodilator spirometry, plethysmography and diffusing capacity. The test was performed and results interpreted in accordance with the 2019 and 2005 ATS/ERS Task Force guidelines respectively using the Global Lung Function Initiative-2012 reference equations. Patient demonstrated good effort and cooperation. Reproducibility criteria were met. The quality of the pre bronchodilator spirometry maneuver was Grade B and post bronchodilator spirometry maneuver was Grade A. Findings: Spirometry: The contour the inspiratory and expiratory flow tracing are normal. The pre bronchodilator FVC is 2.65 L, 73% predicted. The pre bronchodilator FEV1 is 1.94 L, 70% predicted. The pre bronchodilator FEV1: FVC ratio was 73%. The post bronchodilator FVC is 2.71 L, representing a 2% increase. The post bronchodilator FEV1 is 1.98 L, representing a 2% increase. The post bronchodilator FEV1: FVC ratio 73%. Plethysmography: The total lung capacity is 4.56 L, 73% predicted. The functional residual capacity is 2.23 L, 68% predicted. The residual volume is 1.69 L, 74% predicted. Diffusing capacity: The diffusing capacity unadjusted for hemoglobin and carboxyhemoglobin is 20.7, 86% predicted. The diffusing capacity adjusted for alveolar volume is 4.74, 116% predicted. Impression: There is a mild restrictive ventilatory abnormality. The spirometry is normal without evidence of an obstructive abnormality. There is no significant improvement after inhaling a single dose of albuterol. The diffusing capacity is normal. There are no prior studies for comparison
== END 2022-05-08 09:00 | disposition home or self-care (01) ==
LOC: ANHPFT 09:04
PROVIDERS: Visit Provider Internal Medicine Critical Care Medicine
DX: R06.09 Other forms of dyspnea (principal); J82.83 Eosinophilic asthma; U09.9 Post COVID-19 condition, unspecified; R94.2 Abnormal results of pulmonary function studies
CPT/HCPCS: 94060; 94618; 94726; 94729

== ENCOUNTER 2022-07-16 09:56 | Outpatient (CLI) | payer MEDICARE, OTHER, SELFPAY ==
--- NOTE | ~2022-07-16 | CT_ITS ---
EXAMINATION: CT chest high resolution wo wy DATE: 07/16/2022 10:10 INDICATION: Shortness of breath, interstitial changes TECHNIQUE: Computed tomography (CT) of the chest was performed without intravenous contrast. The dose -length product (DLP) was 834.56 mGy-cm. Automated exposure control and iterative reconstruction tech [employer] were employed. COMPARISON: 11/21/2021 FINDINGS: There is mild dependent atelectasis in the lower lobes and atelectasis of the lingula. Ther e is no definite evidence of interstitial lung disease. Calcified pulmonary nodules and calcified rig ht hilar and mediastinal lymph nodes are consistent with old granulomatous disease. No pleural effusi on or pneumothorax. Calcified coronary artery atherosclerosis is noted. A stone is present in the non distended gallbladder. There is a 1.4 cm cyst of the left kidney. A 2 mm nonobstructing stone is note d in the left kidney upper pole. There are bridging osteophytes at multiple levels in the spine, con sistent with diffuse idiopathic skeletal hyperostosis (DISH). IMPRESSION: 1. No definite evidence of interstitial lung disease. Reviewed, dictated and finalized at location A. [facility]
== END 2022-07-16 09:57 | disposition home or self-care (01) ==
PROVIDERS: Visit Provider Internal Medicine Critical Care Medicine
DX: J84.89 Other specified interstitial pulmonary diseases (principal)
CPT/HCPCS: 71250

== ENCOUNTER 2022-11-23 09:28 | Outpatient (CLI) | payer MEDICARE, SELFPAY ==
--- NOTE | 2022-11-23 11:21 | WPDPFTINT ---
PFT Procedure Performed PFT Procedure Performed Spirometry with Pre/Post Bronchodilator Plethysmography (Lung Vol) Diffusing Cap (DLCO) Flow Vol Loop PFT Interpretation Lung volumes were measured with the body plethysmography method. Lung volumes are unremarkable. Spirometry showed diminished expiratory flow rates and a normal FEV1 to FVC ratio of 70%. Following administration of a bronchodilator there was no significant increase in expiratory flow rates. Lung diffusion capacity is within the normal range at 87% predicted. The flow-volume loop is unremarkable. Impression: Nonspecific pattern. Lung diffusion capacity within normal range.
== END 2022-11-23 09:29 | disposition home or self-care (01) ==
LOC: ANHPFT 09:30
PROVIDERS: Visit Provider Internal Medicine Critical Care Medicine
DX: R94.2 Abnormal results of pulmonary function studies (principal)
CPT/HCPCS: 94060; 94726; 94729

== ENCOUNTER 2025-06-15 10:15 | Outpatient (CLI) | payer MEDICARE, SELFPAY ==
--- OUTSIDE RECORDS SUMMARY | 2024-12-02 07:30 | XMS_ITS ---
Author Organization [facility], Address [address] [place] [address] Care Team Providers Care Trainman Name Role Phone Destiny ENAMORADO, Rufino Primary Care Provider Delfino Andrade Unavailable [phone] REASON FOR VISIT Echocardiogram: Test takes 30 minutes Encounters Encounter Location Date Provider Diagnosis [facility] [place], [address] [place] [address] 12/02/2024 Delfino Dougherty Plan Of Treatment No Information Progress Notes * Richy STRATTON RDOB: [birth year] (75 yo M)Acc No.[id number]:12/02/2024 ECHOS Patient: Richy DE JESUS Provider: Renata DOUGHERTY MD :1950 A ge:74 Y S ex:Male Date:12/02/2024 Address:[id number] Pcp:Rufino Dixon MD Subjective: * Chief Complaints: * 1 . Echocardiogram: Test takes 30 minutes. * Medical History: Objective: * Vitals: Assessment: Plan: * Treatment: * Images: * Electronic signature of Delfino Dougherty MD on 06/15/2025 at 10:50 AM [employer] SU[employer] PLANNER Sign off status: Pending * Provider: Renata DOUGHERTY MD Date: 0 12/02/2024 Generated for Printi ng/Faxing/eTransmitting on: 1 08/15/2024 10:50 AM [employer] SUPPORT PLANNER
--- OUTSIDE RECORDS SUMMARY | 2025-06-02 08:00 | XMS_ITS ---
Author Organization [facility], Address [address] [place] [address] Care Team Providers Care Churn Driller Helper Name Role Phone Destiny ENAMORADO, Rufino Primary Care Provider Delfino Andrade Unavailable [phone] REASON FOR VISIT Echocardiogram: Test takes 30 minutes Encounters Encounter Location Date Provider Diagnosis [facility] [place], [address] [place] [address] 06/02/2025 Delfino Dougherty Plan Of Treatment No Information Progress Notes * Richy STRATTON RDOB: [birth year] (75 yo M)Acc No.[id number]:06/02/2025 ECHOS Patient: Richy DE JESUS Provider: Renata DOUGHERTY MD :1950 A ge:74 Y S ex:Male Date:06/02/2025 [id number] Pcp:Rufino Dixon MD Subjective: * Chief Complaints: * 1 . Echocardiogram: Test takes 30 minutes. * Medical History: Objective: * Vitals: Assessment: Plan: * Treatment: * Images: * Electronic signature of Delfino Dougherty MD on 06/15/2025 at 10:50 AM FARM CREW MEMBER Sign off status: Pending * Provider: Renata DOUGHERTY MD Date: Generated for Printi ng/Faxing/eTransmitting on: 08/15/2024 10:50 AM FARM CREW MEMBER
--- OUTSIDE RECORDS SUMMARY | 2025-06-15 10:50 | XMS_ITS | Patient Health Record ---
Author Organization [facility], Address [address] [place] [address] Care Team Providers Care Retirement Administrator Name Role Phone Rufino Dixon MD Primary Care Provider Delfino Andrade Unavailable [phone] Allergies Allergen (clinical drug ingredient) Drug/Non Drug Allergy documented on EMR Reaction Allergy Type Onset Date Status Biaxin Unknown Drug Allergy Active Penicillin Unknown Drug Allergy Active Reason For Referral No Information Medications Medication SIG (Take, Route, Frequency, Duration) Notes Start Date End Date Status Farxiga 10 MG 1 tablet Orally Once a day Active Valsartan 320 MG 1 tablet Orally Once a day; Duration: 30 day(s) Active Losartan Potassium 100 MG 1 tablet Orall y Once a day; Duration: 30 day(s) Not-Taking Spironolactone 25 MG 1 tablet Orally Active Sildenafil Citrate 25 MG 1 tablet as nee ded Orally Once a day Not-Taking amLODIPine Besylate 10 MG 1 tablet Orall y Once a day; Duration: 30 day(s) Active Triam/ HCTZ 37.5-25 DAILY Active Metoprolol Succinate ER 100 MG 1 tablet Orally Once a day Active Advair HFA 115-21 MCG/ACT 2 puffs Inhala tion Twice a day Active Ezetimibe 10 MG 1 tablet Orally Once a day; Duration: 30 day(s) Active Albuterol Sulfate HFA 108 (90 Base) MCG/ACT 1 puff as needed Inhalation every 4 hrs Active Pravastatin Sodium 20 MG 1 tablet Orally Once a day; Duration: 30 day(s) Active Modafinil 200 MG 1 tablet in the morning Orally Once a day Active hydrALAZINE HCl 50 MG 1 tablet with food Orally Twice a day Active Meloxicam 15 MG 1 tablet Orally Once a day; Duration: 30 day(s) Active Pantoprazole Sodium 40 MG 1 tablet Orall y Once a day; Duration: 30 day(s) Active Social History Tobacco Use: Social History Observation Description Date Details (start date - stop date) Never Smoker NA - NA Tobacco Use/Smoking Question Answer Notes Are you a nonsmoker Additional Findings: Tobacco Non-User Does not u se moist powdered tobacco Tobacco use other than smoking: Question Answer Notes Are you an other tobacco user? 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 (926610606548957) 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) Active confirmed Problem Aortic valve disorde r (5952044) Nonrheumatic aortic (valve) stenosis (I35.0) Active confirmed Problem Heart murmur (findin g) (01448113) Cardiac murmur, unspecified (R01.1) Active confirmed Problem Chest pain (33568024) Chest pain , unspecified (R07.9) Active confirmed Problem Pure hypercholesterolemia (737950288) Pure hypercholesterole macario, unspecified (E78.00) Active confirmed Vital Signs Heart Rate 89 /min 06/09/2025 Blood pressure diastolic 71 mm Hg 06/09/2025 Height 5ft 7in in 06/09/2025 Blood pressure systolic 111 mm Hg 06/09/2025 Weight 239 lbs 06/09/2025 BMI 37.43 kg/m2 06/09/2025 Encounters Encounter Location Date Provider Diagnosis [facility], [address] [place] [address] 06/02/2025 Delfino Dougherty [facility] [address] [place] [address] 12/07/2024 [facility] Nonrheumatic aortic (valve) stenosis I35.0 ; 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 I25.10 ; Pure hypercholesterolemia, unspecified E78.00 and Other obesity E66.8 [facility] [place] [address] [place] [address] 06/09/2025 Delfino [facility] Nonrheumatic aortic (valve) stenosis I35.0 ; 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 I25.10 ; Essential (primary) hypertension I10 and Other obesity E66.8 Assessments Encounter Date Diagnosis (ICD Code) Assessment Notes Treatment Notes Treatment Clinical Notes Section Notes 12/07/2024 Nonrheumatic aortic (valve) stenosis (ICD-10 - I35.0) Moderate aortic stenosis Echocardiogram 06/20/2022 showed EF 60% AV 1.3 cm2 Trace TR/MR Walking Lexiscan nuclear stress test on 01/26/2020 done at [facility] showing possible inferior wall myocardial ischemia versus diaphragmatic attenuation artifact Echo 07/01/2023 showed EF 60% Moderate aortic stenosis JANET 1.3 cm2 Trace AI, Trace MR and trace No worsening CHAUDHARI or chest pain We will get a repeat Echo in 6 months 06/09/2025 Nonrheumatic aortic (valve) stenosis (ICD-10 - I35.0) Aortic stenosis Echocardiogram 06/20/2022 showed EF 60% JANET 1.3 cm2 Trace TR/MR Walking Lexiscan nuclear stress test on 01/26/2020 done at [facility] showing possible inferior wall myocardial ischemia versus diaphragmatic attenuation artifact Echo 07/01/2023 showed EF 60% Moderate aortic stenosis JANET 1.3 cm2 Trace AI, Trace MR and trace TR [facility] 01/10/2023 showed LVEDP 30 mmHg Moderate aortic stenosis (25 mmHg gradient across aortic valve) and non-obstructive CAD with 20% proximal and 40% mid LAD and 30% proximal RCA stenoses Echocardiogram 06/02/2025 showed EF 60% Severe aortic stenosis JANET 0,8cm2 MG 54 mmHg and PG 32 mmHg He reports increaing CHAUDHARI and fatigue Plan [facility] prior to referal for aortic valve replacement 06/09/2025 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 (ICD-10 - I25.10) 12/07/2024 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 (ICD-10 - I25.10) CAD [facility] 01/10/2023 showed LVEDP 30 mmHg Moderate aortic stenosis (25 mmHg gradient across aortic valve) and non-obstructive CAD with 20% proximal and 40% mid LAD and 30% proximal RCA stenoses No chest pain 06/09/2025 Essential (primary) hypertension (ICD-10 - I10) 12/07/2024 Pure hypercholesterolemi a, unspecified (ICD-10 - E78.00) 06/09/2025 Other obesity (ICD-10 - E66.8) 12/07/2024 Other obesity (ICD-10 - E66.8) Plan Of Treatment No Information Insurance Providers Payer Name Payer Address Payer Phone Subscriber Number Group Number Insured Name Patient Relationship to Insured Coverage Start Date Coverage End Date [employer] [address] [address] [place], [place] [id number] [phone] [id number] Richy Stratton Self - patient is the insured Medical (General) History Surgical History Surgery Date(Month/Year) Lithotripsy for renal calculi, RIGHt LETTY 01/2023
--- OUTSIDE RECORDS SUMMARY | 2025-06-15 10:51 | XMS_ITS | Clinical Summary ---
Author Organization [facility] Address [address] [place] [address] Care Team Providers Care Wood Lather Name Role Phone Rufino Dixon MD Primary Care Provider [phone] Source Comments [facility],non-owned Affiliates and Associated Physician Practices is amultiple site organization consisting of ambulatory clinics and hospital sitesin [place], [place], [place] and [place]. This disclosure is being madepursuant to the Care Everywhere program and may not contain all information available regarding this patient. Last updated 18.[facility] Allergies Active Allergy Reactions Criticality Noted Date Comments Clarithromycin Swelling Medium 03/27/2013 Swells eyes shut Penicillins Urticaria High 03/27/2013 Medications * Be aware that medications may not be up to date on this document. Alwaysverify current medications with the patient. amLODIPine (NORVASC) 10 MG tabletIndicatio ns:Hypertension Take 1 tablet by mouth once daily Reasons: High Blood Pressure Disorder 30 tablet 3 8 Active pantoprazole EC (PROTONIX) 40 MG tablet Take 1 (one) tablet by mouth every morning 1 Active ezetimibe (Zetia) 10 MG tablet Take 1 (one) tablet by mouth once daily 3 Active hydrALAZINE (Apresoline) 50 MG tablet Take 1 (one) tablet by mouth 2 times daily 3 Active valsartan (Diovan) 320 MG tablet Take 1 (one) tablet by mouth once daily after dinner 3 Active Multiple Vitamins-Minera ls (MULTI-VITAMIN/ MINERALS PO) Take 1 tablet by mouth once daily Active loratadine (Claritin) 10 MG tablet Take 1 (one) tablet by mouth once daily Active metoprolol succinate XL 24hr (Toprol XL) 100 MG tablet Take 1 (one) tablet by mouth once daily after dinner Active fluticasone-hien meterol hfa (Advair HFA) 230-21 MCG/ACT Inhale 2 (two) puffs by mouth 2 times daily Active ipratropium (Atrovent) 0.02 % nebulizer solution Inhale 0.5 (one-half) mg by mouth 4 times daily as needed for Shortness of Breath or Wheezing MIX WITH ALBUTEROL SULFATE Active albuterol (Proventil;Vent anderson) (2.5 MG/3ML) 0.083% nebulizer solution Inhale 2.5 (two and one-half) mg by mouth 4 times daily as needed for Shortness of Breath or Wheezing MIX WITH IPRATROPIUM Active pravastatin (Pravachol) 20 MG tablet Take 1 (one) tablet by mouth at bedtime Active Albuterol Sulfate (PROVENTIL HFA IN) Inhale 2 puffs by mouth as needed (QID) Active HYDROcodone-tara taminophen (Wadley) 5-325 MG tabletIndicatio ns:Status post right hip replacement Take 1 (one) tablet by mouth every 8 hours as needed 30 tablet 3 Active traMADol (Ultram) 50 MG tabletIndicatio ns:Status post right hip replacement Take 2 (two) tablets by mouth 4 times daily 120 tablet 3 Active acetaminophen (Tylenol) 500 MG tabletIndicatio ns:Status post right hip replacement Take 2 (two) tablets by mouth 3 times daily Maximum allowable Acetaminophen amount = 4 Grams (4000 mg) / 24 hours. 3 Active docusate sodium (Colace) 100 MG capsuleIndicati ons:Status post right hip replacement Take 1 (one) capsule by mouth 2 times daily 3 Active Active Problems Problem Noted Date Diagnosed Date Status post right hip replacement 01/24/2023 Fall 10/02/2022 Back muscle spasm 10/02/2022 Closed head injury 10/02/2022 Pneumonia of right lower lobe due to infectious organism 07/13/2018 Encounters Date Type Department Care Team Description 04/20/2025 9:00 AM CDT - 04/20/2025 11:59 PM CDT Hospital Encounter [facility] Imaging Services - MRI [address] [place] [address] Rufino Dixon MD Discharge Disposition: Home or Self Care from Last 3 Months Immunizations Immunization Administration Dates Next Due TDAP (7yrs+) 10/02/2022 Social History Tobacco Use Types Packs/Day Years Used Date Smoking Tobacco: Former Cigarettes Smokeless Tobacco: Never Tobacco Cessation:Counseling Given: Yes Alcohol Use Standard Drinks/Week Comments Yes 2 (1 standard drink = 0.6 oz pur e alcohol) Overall Financial Resource Strain (CARDIA) Answe r Date Recorded How hard is it for you to pa y for the very basics like food, housing, medical care, and heating? Not hard at all 01/25/2023 [facility] Occupat [facility] - Occupational Stress Questionnaire Answer Date Recorded Do you feel stress - tense, restless, nervous, or anxious, or unable to sleep at night because your mind is troubled all the time - these days? Only a little 01/25/2023 Hunger Vital Sign Answer Date Recorded Within the past 12 months, y ou worried that your food would run out before you got the money to buy more. Never true 01/26/20 Within the past 12 months, t he food you bought just didn't last and you didn't have money to get more. Never true 01/25/2023 PRAPARE - Transportation Answer Date Re corded In the past 12 months, has l ack of transportation kept you from medical appointments or from getting medications? No 01/04 In the past 12 months, has l ack of transportation kept you from meetings, work, or from getting things needed for daily living? No 01/25/2023 Housing Stability Vital Sign Answer Bryson e Recorded In the last 12 months, was t here a time when you were not able to pay the mortgage or rent on time? No 01/25/2023 In the last 12 months, how many places have you lived? 1 01/25/2023 In the last 12 months, was t here a time when you did not have a steady place to sleep or slept in a mcfp (including now)? No 01/25/2023 Sex and Gender Information Value Date Recorded Sex Assigned at Not on file Legal Sex Male 4:32 PM STRING CUTTER Gender Identity Not on file Sexual Orientation Not on file Last Filed Vital Signs Vital Sign Reading Time Taken Comments Blood Pressure 119/76 10/03/2023 1:18 PM STRING CUTTER Pulse 88 10/03/2023 1:18 PM STRING CUTTER Temperature 36.7 C (98 F) 10/03/2023 1:18 PM STRING CUTTER Respiratory Rate 20 10/03/2023 1:18 PM STRING CUTTER Oxygen Saturation 96% 10/03/2023 1:18 PM STRING CUTTER Inhaled Oxygen Concentration 21% 01/26/2023 3 :11 PM CDT Weight 117.5 kg (259 lb) 10/03/2023 1:18 PM STRING CUTTER Height 170.2 cm (5' 7) 10/03/2023 1:18 PM STRING CUTTER Body Mass Index 40.57 10/03/2023 1:18 PM STRING CUTTER Plan of Treatment Upcoming Encounters Date Type Department Care Team (Latest Contact Info) Description 06/17/2025 6:00 AM STRING CUTTER Appointment [facility] [address] [place] [address] 06/17/2025 7:30 AM STRING CUTTER Hospital Encounter [facility] - Cardiac Bottle Filler [address] [place] [address] Delfino Dougherty MD [address] [place] [address] Cardiac Catheterization 06/17/2025 7:30 AM STRING CUTTER - 06/17/2025 8:45 AM STRING CUTTER Surgery [facility] - Cardiac Bottle Filler [address] [place] [address] Delfino Dougherty MD [address] [place] [address] Left Heart Cath Health Maintenance Due Date Last Done Comments HEPATITIS C SCREENING 06/06/1968 PNEUMOCOCCAL VACCINE 50+ (1 of 1 - PCV) 1999 ZOSTER VACCINE (1 of 2) 1999 Respiratory Syncytial Virus (RSV) Vaccine Pt: or over 60 yrs (1 - 1-dose 75+ series) 2024 DEPRESSION SCREENING 08/05/2024 MEDICARE AWV CALENDAR YEAR 2024 COVID-19 VACCINE (2 - 2024-2 6 season) 2025 09/11/2021 INFLUENZA VACCINE (#1) 2025 DTAP/TDAP/TD VACCINES (2 - T d or Tdap) 10/02/2032 10/02/2022 HEPATITIS B VACCINE Aged Out No longe r eligible based on patient's age to complete this topic HIB VACCINE Aged Out No longer eligi ble based on patient's age to complete this topic HPV VACCINE Aged Out No longer eligi ble based on patient's age to complete this topic MENINGOCOCCAL (Group B) VACC INE SHARED DECISION-MAKING Aged Out No longer eligibl e based on patient's age to complete this topic MENINGOCOCCAL GROUPS A/C/Y/W VACCINE Aged Out No longer eligible b ased on patient's age to complete this topic Medical Devices Implanted Type Area Pipe [employer]r Device Identifier Shelf Expiration Date Model / Serial / Lot Shell Actb 52mm Hip 3 Hl Poly R3 Std Implanted:Qty: 1 on 01/24/2023 by Josias Hathaway MD at [facility] Right: Hip [employer] 06/06/2032 [id number] / / [id number] Liner Actb R3 20d 52mm 36mm Xlpe Poly Implanted:Qty: 1 on 01/24/2023 by Josias Hathaway MD at [facility] Right: Hip [employer] 08/31/2032 [id number] / / [id number] Stem Fem 11mm 145mm Hip Std Ofst Tpr Prm Implanted:Qty: 1 on 01/24/2023 by Josias Hathaway MD at [facility] Right: Hip [employer] 11/19/2032 [id number] / / [id number] Screw 6.5mm 25mm Unv Ft Hip Actb Canc Implanted:Qty: 1 on 01/24/2023 by Josias Hathaway MD at [facility] Right: Hip [employer] 11/29/2032 [id number] / / [id number] Head Fem -3mm 12/14 Tpr 36mm Hip Rev Implanted:Qty: 1 on 01/24/2023 by Josias Hathaway MD at [facility] Right: Hip [employer] 08/31/2032 [id number] / / [id number] Procedures Procedure Name Priority Date/Time Associated Diagnosis Comments MRI PROSTATE WWO CONTRAST Routine 04/20/2025 10:36 AM CDT Elevated PSA ISTAT CREATININE Routine 04/20/2025 9:34 AM CDT from Last 3 Months Results * MRI PROSTATE WWO CONTRAST [id number] (04/20/2025 10:36 AM CDT) Anatomical Region Laterality Modality Pelvis Magnetic Resonan ce 04/20/2025 3:41 PM CDT Impressions 04/20/2025 3:46 PM CDT IMPRESSION: Findings consistent with a small volume, likely an 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 PIRADS 4 > Interpreting Provider: Husam Dash MD on 04/20/2025 3:46 PM Narrative 04/20/2025 3:46 PM CDT PROCEDURE: MRI PROSTATE WWO CONTRAST DATE/TIME OF EXAM: 04/20/2025 10:36 AM CLINICAL INFORMATION: None relevant/not provided if blank. Indication: R97.20: Elevated PSA Additional History: COMPARISON: Prior pelvic CT and ultrasound. No prior dedicated prostate imaging studies are available. TECHNIQUE: MRI of the pelvis was performed utilizing multiple pulse sequences in multiple planes with attention to the prostate gland. Precontrast diffusion, T1 and T2-weighted images. Sequential, dynamic contrast enhanced T1-weighted images. CONTRAST: GADOBENATE DIMEGLUMINE 529 MG/ML IV SOLN:20 mL FINDINGS: Prostate volume: 87 cc Transitional zone description: There is enlargement of the transitional zone. There is inhomogeneous, primarily low T2 signal throughout the transitional zone. There is stromal nodule formation. No definite mass lesion or confluent abnormal signal identified to specifically suggest a neoplastic process within the transitional zone. Peripheral zone description: Within the left lateral peripheral zone at the level the mid gland there is an approximately 9 mm diameter lesion. This cyst demonstrates reduced T2 signal intensity, diffusion restriction and is hyperemic following gadolinium administration. This is presumed neoplastic. Degree of diffusion restriction suggest an intermediate grade lesion. No other suspicious abnormal signal intensity or diffusion restriction is identified within the peripheral zone. There is generalized volume loss peripheral zone as a result of enlargement of the transitional zone. Lesions: Left lateral peripheral zone, mid gland Prostate capsule: Grossly intact Seminal vesicles: Symmetric. No focal mass identified. Lymph nodes: No abnormally enlarged or suspicious appearing pelvic lymph nodes Skeletal: No abnormal signal intensity to suggest a bone marrow replacement process. Procedure Note Husam Dash MD - 04/20/2025 PROCEDURE: MRI PROSTATE WWO CONTRAST DATE/TIME OF EXAM: 04/20/2025 10:36 AM CLINICAL INFORMATION: None relevant/not provided if blank. Indication: R97.20: Elevated PSA Additional History: COMPARISON: Prior pelvic CT and ultrasound. No prior dedicated prostate imagingstudies are available. TECHNIQUE: MRI of the pelvis was performed utilizing multiple pulse sequences in multiple planes with attention to the prostate gland. Precontrast diffusion, T1 and T2-weighted images. Sequential, dynamic contrastenhanced T1-weighted images. CONTRAST: GADOBENATE DIMEGLUMINE 529 MG/ML IV SOLN:20 mL FINDINGS: Prostate volume: 87 cc Transitional zone description: There is enlargement of the transitional zone. There is inhomogeneous, primarily low T2 signal throughout the transitional zone. There is stromal nodule formation. No definite mass lesion or confluent abnormal signal identified to specifically suggest a neoplastic process within the transitional zone. Peripheral zone description: Within the left lateral peripheral zone atthe level the mid gland there is an approximately 9 mm diameter lesion. This cyst demonstrates reduced T2 signal intensity, diffusion restriction andis hyperemic following gadolinium administration. This is presumedneoplastic. Degree of diffusion restriction suggest an intermediate grade lesion. No other suspicious abnormal signal intensity or diffusion restrictionis identified within the peripheral zone. There is generalized volume loss peripheral zone as a result of enlargement of the transitional zone. Lesions: Left lateral peripheral zone, mid gland Prostate capsule: Grossly intact Seminal vesicles: Symmetric. No focal mass identified. Lymph nodes: No abnormally enlarged or suspicious appearing pelvic lymph nodes Skeletal: No abnormal signal intensity to suggest a bone marrowreplacement process. IMPRESSION: Findings consistent with a small volume, likely an intermediate grade neoplastic focus left lateral peripheral zone at the level of the midgland as described. PIRADS 4 > Interpreting Provider: Husam Dash MD on 04/20/2025 3:46 PM us Rufino Dixon MD MR ORDERABLES Final Result * (ABNORMAL) ISTAT CREATININE (04/20/2025 9:34 AM CDT) Creatinine POCT 1.60(H) 0.60 - 1.30 mg/dL 04/20/2025 9:39 AM CDT [facility] eGFR 45(L) >90 mL/min/1.7 3m2 04/20/2025 9:39 AM CDT [facility] Comment:Estimated Glomerular Filtration Rate (eGFR) calculated using the CKD-EPI Creatinine Equation (2020), per the National Kidney Foundation and [place] Society of Nephrology recommendations. Blood BLOOD SPECIMEN / Unknown 04/20/2025 9:34 AM CDT 04/20/2025 9:39 AM CDT us Rufino Dixon MD LAB - POINT OF CARE ORDERABLES F inal Result Performing Organization Address City/State/[facility] Co de Phone Number [facility] [address] [place], [place] [phone] [place] [address] from Last 3 Months Insurance MEDICARE [employer] MEDICARE ADV HMO & PPO [address] MEDICARE ADV HMO & PPO Advance Directives * Full Code (Latest Code Status on File) Date Activated Date Inactivated Comments 01/24/2023 12:24 PM 01/28/2023 1:58 PM * Full Code Date Activated Date Inactivated Comments 01/10/2023 10:23 AM 01/10/2023 3:58 PM * Full Code Date Activated Date Inactivated Comments 07/14/2018 1:28 AM 07/16/2018 12:54 PM Care Teams Wood Lather Relationship Specialty Start Date End Date Rufino Dixon MD PCP - General Internal Medicine 03/27/13
--- OUTSIDE RECORDS SUMMARY | 2025-06-15 10:51 | XMS_ITS | Clinical Summary ---
Author Organization [facility] Address [address] [place] [address] Phone Care Team Providers Care Teacher Selection Specialist Name Role Phone Rufino Dixon MD Primary Care Provider [phone] Social History Tobacco Use Types Packs/Day Years Used Date Smoking Tobacco: Never Assessed Sex and Gender Information Value Date Recorded Sex Assigned at Male 12/29/2024 1:21 PM CDT Legal Sex Male 12:36 PM CDT Gender Identity Male 12/29/2024 1:21 PM CDT Sexual Orientation Not on file Plan of Treatment Health Maintenance Due Date Last Done Comments Hepatitis C Virus (HCV) Screening 1949 Cologuard 1994 Colonoscopy 1994 Colorectal Cancer Screening 1994 Immunochemical Fecal Occult Blood 1994 Medicare Initial AWV [id number] 10/04/2023 Influenza Immunization (#1) 2025 07/06/2022 SARS-COV-2 Immunization ( season) 2025 07/11/2023, 09/11/2021 Pneumococcal Immunization (5 0+ years) Completed 04/19/2022 Zoster Immunization Completed 06/20/2022, 04/20/2022 TdaP Immunization Completed 10/02/2022 Respiratory Syncytial Virus (RSV) Immunization (Adult) Completed 07/11/2023 Hepatitis B Immunization Aged Out No longer eligible based on patient's age to complete this topic Human Papillomavirus (HPV) Immunization Aged Out No longer eligible b ased on patient's age to complete this topic Meningococcal Immunization (ACWY) Aged Out No longer eligible b ased on patient's age to complete this topic Rotavirus Immunization Aged Out No lo nger eligible based on patient's age to complete this topic Insurance MEDICARE C [employer] Care Teams Teacher Selection Specialist Relationship Specialty Start Date End Date Rufino Dixon MD [address] [place] [address] PCP - General Internal Medicine 12/29/24
--- NOTE | 2025-06-15 15:21 | WPDSIXMINUTE ---
Six Minute Walk Procedure Procedure Performed Pulmonary Stress Test (6 min walk) Six Minute Walk Six Minute Walk: This is a 6 minute walk test. The test was performed and interpreted in accordance with the 2014 ERS/ATS task force guidelines. Findings: The patient's resting room air oxygen saturation measured by pulse oximetry was 96%, the heart rate was 90 bpm, and the modified Zachery dyspnea score was 0. Patient ambulated for 305 meters and oxygen saturation remained 92 to 94%. At the end of the study the heart rate was 102 bpm and the modified Zachery dyspnea score was 2. The patient did not qualify for supplemental oxygen at rest or with ambulation. There are no prior studies for comparison.
--- NOTE | 2025-06-15 15:23 | WPDPFTINT ---
PFT Procedure Performed PFT Procedure Performed Spirometry with Pre/Post Bronchodilator Plethysmography (Lung Vol) Diffusing Cap (DLCO) Flow Vol Loop PFT Interpretation This is a pulmonary function test with pre and post-bronchodilator spirometry, plethysmography and diffusing capacity. The test was performed and results interpreted in accordance with the 2019 and 2005 ATS/ERS Task Force guidelines respectively using the Global Lung Function Initiative-2012 reference equations. Patient demonstrated good effort and cooperation. Reproducibility criteria were met. The quality of the pre bronchodilator spirometry maneuver was Grade A and post bronchodilator spirometry maneuver was Grade A. Findings: Spirometry: The contour the inspiratory and expiratory flow tracing are normal. The pre bronchodilator FVC is 3.03 L, 86% predicted. The pre bronchodilator FEV1 is 2.18 L, 82% predicted. The pre bronchodilator FEV1: FVC ratio 72%. The post bronchodilator FVC is 3.07 L, representing a 1% increase. The post bronchodilator FEV1 is 2.26 L, representing a 3% increase. The post bronchodilator FEV1: FVC ratio is 74%. Plethysmography: The total lung capacity is 5.73 L, 91% predicted. The functional residual capacity is 3.56 L, 107% predicted. The residual volume is 2.60 L, 110% predicted. Diffusing capacity: The diffusing capacity unadjusted for hemoglobin and carboxyhemoglobin is 20.5, 89% predicted. The diffusing capacity adjusted for alveolar volume is 4.83, 122% predicted. In comparison to previous pulmonary function testing on 11/23/2022, the post bronchodilator FVC is unchanged from 2.71 L to 3.07 L. The post bronchodilator FEV1 is increased from 1.94 L to 2.26 L. The total lung capacity is increased from 4.99 L to 5.73 L. The functional residual capacity is increased from 2.79 L to 3.56 L. The residual volume is increased from 2.24 L to 2.60 L. The diffusing capacity unadjusted for hemoglobin and carboxyhemoglobin and is unchanged from 20.8 to 20.5. The diffusing capacity adjusted for alveolar volume is unchanged from 5.00 to 4.83. Impression: The spirometry is normal without evidence of an obstructive abnormality. There is no significant improvement after inhaling a single dose of albuterol. The lung volumes are normal. The diffusing capacity is normal. In comparison to previous pulmonary function testing on 11/23/2022, there has been a greater than anticipated time dependent increase in the post bronchodilator FEV1, total lung capacity, functional residual capacity, residual volume with no significant change in the post bronchodilator FVC or diffusing capacity. Clinical correlation is recommended.
== END 2025-06-15 10:16 | disposition home or self-care (01) ==
LOC: ANHPFT 10:18
PROVIDERS: Visit Provider Nurse Practitioner Family
DX: R09.02 Hypoxemia (principal); R06.09 Other forms of dyspnea; U09.9 Post COVID-19 condition, unspecified
CPT/HCPCS: 94060; 94618; 94726; 94729